=== PATIENT | male | born 1945 | race Caucasian/White ===

== ENCOUNTER 2022-03-22 18:05 | Emergency (ER) | payer MEDICARE, OTHER ==
[2022-03-22 19:41] LABS: BASOPHIL 0.5 % (0-2); EOSINOPHIL 2.1 % (0-7); HCT 48.3 % (42.0-52.0); HGB 15.8 g/dl (13.2-18.0); LYMPHOCYTE 13.6 % (15-48); MCHC 32.7 g/dL (32.0-36.0); MCV 94.7 fL (78.0-100.0); MONOCYTE 9.9 % (0-12); MPV 9.9 fL (6.0-9.5); NEUTROPHIL 73.4 % (41-80); NRBC 0; PLT 196 K/uL (150-400); RDW 13.3 % (11.5-14.0); WBC 7.8 K/uL (4.0-10.5)
[2022-03-22 20:01] LABS: INR 1.09 (0.9-1.2); PROTHROMBIN TIME 13.5 SECONDS (11.8-13.4); PTT 25.9 SECONDS (24.4-34.7)
[2022-03-22 20:05] LABS: ALBUMIN 3.4 g/dL (3.4-5.0); BILIRUBIN - TOTAL 0.3 mg/dL (0.2-1.0); BUN/CREAT RATIO (CALC) 16.9 RATIO; CREATININE 1.42 mg/dL (0.67-1.17); GLOBULIN (CALCULATION) 3.3 g/dL; POTASSIUM 3.9 mmol/L (3.5-5.1); TOTAL PROTEIN 6.7 g/dL (6.4-8.2)
== END 2022-03-22 22:38 | disposition home or self-care (01) ==
LOC: FER 18:05
PROVIDERS: Emergency Medicine
DX: R07.9 Chest pain, unspecified (principal); I10 Essential (primary) hypertension; Z88.8 Allergy status to other drugs, medicaments and biological substances; Z87.891 Personal history of nicotine dependence
CPT/HCPCS: 36415; 71045; 80053; 84484; 85025; 85610; 85730; 93005